=== PATIENT | female | born 1980 | race Caucasian/White ===

== ENCOUNTER 2019-01-04 21:06 | Emergency (ER) | payer OTHER ==
[~2019-01-04] VITALS: Ht 167.6 cm; Wt 68.0 kg
[~2019-01-04 21:06] MED LIST: AUGMENTIN 875 M1 TAB PO
[2019-01-04] MEDS ORDERED: ANAPROX DS550 MG PO (21:44)
== END 2019-01-04 21:59 | disposition home or self-care (01) ==
LOC: ED 21:06
DX: K08.89 Other specified disorders of teeth and supporting structures (principal); Z88.0 Allergy status to penicillin